=== PATIENT | male | born 1985 | race Caucasian/White ===

== ENCOUNTER 2019-08-29 19:12 | Inpatient (IN) | payer SELFPAY ==
[~2019-08-29] VITALS: Ht 172.7 cm; Wt 59.4 kg
[2019-08-29 19:23] VITALS: BP 147/98
[2019-08-29 19:53] LABS: BASO % 0.3 % (0.0-1.0); EOS % 0.2 % (1.0-4.0); HEMATOCRIT 46.1 % (42.0-52.0); LYMPH # 3.9 10*3/uL (1.3-4.4); LYMPH % 35.7 % (27.0-41.0); MEAN CELL VOLUME 88.7 fl (80.0-94.0); MEAN CORPUSCULAR HGB 31.3 pg (27.0-31.0); MEAN CORPUSCULAR HGB CONC 35.4 g/dl (33.0-37.0); MEAN PLATELET VOLUME 10.1 fl (9.6-12.3); MONO # 0.9 10*3/uL (0.1-1.0); MONO % 8.2 % (3.0-9.0); NEUT % 55.3 % (47.0-73.0); PLATELET COUNT AUTOMATED 275 10*3/uL (130-400); RED CELL DISTRI WIDTH 12.3 % (0-14.5); WHITE BLOOD COUNT 10.9 10*3/uL (4.8-10.8)
[2019-08-29 20:09] LABS: ALBUMIN 4.1 gm/dl (3.1-4.5); ALKALINE PHOSPHATASE 81 U/L (45-117); BUN 11 mg/dl (7-24); CHLORIDE 110 mmol/L (98-107); CREATININE 0.94 mg/dL (0.70-1.30); POTASSIUM 3.9 mmol/L (3.5-5.1); SGOT/AST 18 IU/L (3-35); SGPT/ALT 22 U/L (12-78); SODIUM 139 mmol/L (136-145); TOTAL PROTEIN 8.1 gm/dL (6.4-8.2)
[2019-08-29 20:10] LABS: ACETAMINOPHEN (TYLENOL) < 5.0 ug/ml (10-30); ETHYL ALCOHOL < 3.0 mg/dl (<3)
[2019-08-29 20:55] LABS: BILIRUBIN NEGATIVE (NEGATIVE); BLOOD 1+ (NEGATIVE); CLARITY CLEAR (CLEAR); COLOR YELLOW (YELLOW); GLUCOSE NEGATIVE (NEGATIVE); KETONE NEGATIVE (NEGATIVE); LEUKO ESTERASE NEGATIVE (NEGATIVE); NITRITE NEGATIVE (NEGATIVE); RBC 0-2 rbc/hpf (0-2); URINE AMPHETAMINES < 1000 (1000ng/ml); URINE BARBITURATES < 200 (200ng/ml); URINE BENZODIAZEPINES < 200 (200ng/ml); URINE CANNABINOIDS (THC) < 50 (50ng/ml); URINE COCAINE > 300 (300ng/ml); URINE METHADONE < 300 (300ng/ml); URINE OPIATES < 300 (300ng/ml); UROBILINOGEN 0.2 E.U./dl (0.2-1.0)
[2019-08-29 20:58] LABS: URINE PHENCYCLIDINE < 25 (25ng/ml)
[2019-08-29 22:45] VITALS: BP 138/84
[2019-08-30 04:22] LABS: BASO % 0.3 % (0.0-1.0); EOS # 0.1 10*3/uL (0.0-0.4); EOS % 0.5 % (1.0-4.0); HEMATOCRIT 44.2 % (42.0-52.0); LYMPH # 4.3 10*3/uL (1.3-4.4); LYMPH % 36.5 % (27.0-41.0); MEAN CELL VOLUME 91.7 fl (80.0-94.0); MEAN CORPUSCULAR HGB 31.3 pg (27.0-31.0); MEAN CORPUSCULAR HGB CONC 34.2 g/dl (33.0-37.0); MONO # 1.1 10*3/uL (0.1-1.0); MONO % 9.3 % (3.0-9.0); NEUT # 6.3 10*3/uL (2.3-7.9); NEUT % 53.1 % (47.0-73.0); PLATELET COUNT AUTOMATED 222 10*3/uL (130-400); RED BLOOD COUNT 4.82 10*6/uL (4.50-5.90); RED CELL DISTRI WIDTH 12.6 % (0-14.5); WHITE BLOOD COUNT 11.9 10*3/uL (4.8-10.8)
[2019-08-30 04:33] LABS: ACT PARTIAL THROMBO TIME 24.4 SECONDS (20.0-32.1)
[2019-08-30 04:40] LABS: BUN 12 mg/dl (7-24); CHLORIDE 111 mmol/L (98-107); POTASSIUM 3.9 mmol/L (3.5-5.1); SODIUM 142 mmol/L (136-145)
[2019-08-30 04:51] LABS: CREATININE 0.99 mg/dL (0.70-1.30)
[2019-08-30 04:56] LABS: HDL CHOLESTEROL 49 mg/dl (40-60)
[2019-08-30 04:59] LABS: CHOLESTEROL 191 mg/dL (<200); FREE T4 1.17 ng/dl (0.76-1.46); LDL CHOLESTEROL 120 mg/dL (9-159); TRIGLYCERIDES 111 mg/dl (<150); VLDL CHOLESTEROL 22 mg/dL (6-40)
[2019-08-30 06:32] LABS: VITAMIN D, 25-HYDROXY 26.5 ng/mL (30-100)
[2019-08-30 08:00] VITALS: BP 128/90; BP 132/86
[2019-08-30 12:00] VITALS: BP 133/79
[2019-08-30 16:00] VITALS: BP 121/84
[2019-08-30 20:00] VITALS: BP 131/84
[2019-08-31] VITALS: BP 103/66
[2019-08-31 08:00] VITALS: BP 119/68
[2019-08-31 12:00] VITALS: BP 134/96
[2019-08-31 16:00] VITALS: BP 145/93
[2019-08-31 20:00] VITALS: BP 132/90
[2019-09-01] VITALS: BP 133/89
[2019-09-01 08:00] VITALS: BP 129/88
[2019-09-01 12:00] VITALS: BP 132/86
[2019-09-01 16:00] VITALS: BP 119/90
[2019-09-01 20:00] VITALS: BP 138/96
[2019-09-02] VITALS: BP 116/87
[2019-09-02 06:16] LABS: BASO % 0.4 % (0.0-1.0); EOS # 0.1 10*3/uL (0.0-0.4); EOS % 0.8 % (1.0-4.0); HEMATOCRIT 39.9 % (42.0-52.0); LYMPH # 3.3 10*3/uL (1.3-4.4); LYMPH % 42.8 % (27.0-41.0); MEAN CELL VOLUME 91.1 fl (80.0-94.0); MEAN CORPUSCULAR HGB 31.5 pg (27.0-31.0); MEAN CORPUSCULAR HGB CONC 34.6 g/dl (33.0-37.0); MEAN PLATELET VOLUME 10.5 fl (9.6-12.3); MONO # 0.8 10*3/uL (0.1-1.0); MONO % 9.9 % (3.0-9.0); NEUT # 3.5 10*3/uL (2.3-7.9); NEUT % 45.8 % (47.0-73.0); PLATELET COUNT AUTOMATED 213 10*3/uL (130-400); RED BLOOD COUNT 4.38 10*6/uL (4.50-5.90); RED CELL DISTRI WIDTH 12.3 % (0-14.5); WHITE BLOOD COUNT 7.6 10*3/uL (4.8-10.8)
[2019-09-02 06:23] LABS: CREATININE 0.72 mg/dL (0.70-1.30)
[2019-09-02 08:00] VITALS: BP 128/87
[2019-09-02 12:00] VITALS: BP 127/83
[2019-09-02 16:00] VITALS: BP 137/94
[2019-09-02 20:00] VITALS: BP 124/87
[2019-09-03] VITALS: BP 119/68
[2019-09-03 08:00] VITALS: BP 135/83
[2019-09-03 12:00] VITALS: BP 133/83
[2019-09-03] MEDS ORDERED: VITAMIN D350 MC2 PO (13:29)
[2019-09-03] MEDS ORDERED: DIVALPROEX SOD500 MG PO (13:29)
[2019-09-03] MEDS ORDERED: PALIPERIDONE ER6 MG PO (13:29)
[2019-09-03 16:00] VITALS: BP 139/82
[2019-09-03 20:00] VITALS: BP 128/91
[2019-09-04] VITALS: BP 141/94
[2019-09-04 08:00] VITALS: BP 135/83
== END 2019-09-04 11:15 | disposition home health service (06) | DRG 917 ==
LOC: ED 19:12 → 4E 21:50 → EDHOLD 21:50 → 4E 21:59
PROVIDERS: Emergency Medicine Emergency Medical Services; Family Medicine; ADMIT Internal Medicine
DX: T40.5X1A Poisoning by cocaine, accidental (unintentional), initial encounter (principal); G92 Toxic encephalopathy; F17.213 Nicotine dependence, cigarettes, with withdrawal; F31.2 Bipolar disorder, current episode manic severe with psychotic features; F23 Brief psychotic disorder; F14.10 Cocaine abuse, uncomplicated; F41.1 Generalized anxiety disorder; Y92.89 Other specified places as the place of occurrence of the external cause